=== PATIENT | female | born 1950 | race Caucasian/White ===

== ENCOUNTER 2023-11-16 06:46 | Day surgery (SDC) | payer MEDICARE, BC, SELFPAY ==
--- OUTSIDE RECORDS SUMMARY | 2023-11-16 06:52 | XMS_ITS | Clinical Summary ---
Author Name Unknown Organization [facility] Address [place], [place] [address] Care Team Providers Care Instrument Repair Technician Name Role Phone Rupinder Stockton MD Primary Care Provide r Allergies Active Allergy Reactions Criticality Noted Date Comments Erythromycin Diarrhea 04/17/2007 Terbinafine Rash 11/25/2022 Medications Medication Sig Dispensed Refills Start Date End Date Status blood-glucose meterIndications :Type 2 diabetes mellitus without complication, without long-term current use of insulin (HC) Dispense meter, test strips, lancets covered by pt ins. E11.9 NIDDM type II - Test 2 times/day.New diagnosis of diabetes. 1 Device 0 9 Active loperamide (IMODIUM) 2 mg capsuleIndicatio ns:Loose stools Take 4mg by mouth each AM. Then OK to take 2 mg with 1st loose stool, then 2mg with each subsequent loose stool. Max 16 mg in 24 hrs 180 Capsule 1 3 Active cetirizine (ZYRTEC) 10 mg tabletIndication s:Rash Take 1 Tablet (10 mg) by mouth once daily. 30 Tablet 0 3 Active diphenhydrAMINE (BENADRYL) 25 mg capsuleIndicatio ns:Rash Take 1-2 capsules at bedtime for itching 20 Capsule 0 3 Active meclizine (ANTIVERT) 12.5 mg tabletIndication s:Vertigo Take 1-2 tablets every 8 hours if needed for dizziness 20 Tablet 0 3 Active atenoloL (TENORMIN) 25 mg tabletIndication s:Essential hypertension,Pal pitations Take 1 Tablet (25 mg) by mouth once daily. 90 Tablet 3 3 Active rosuvastatin (CRESTOR) 5 mg tabletIndication s:Left carotid artery stenosis Take 1 Tablet (5 mg) by mouth at bedtime. 90 Tablet 3 3 Active traZODone (DESYREL) 50 mg tabletIndication s:Primary insomnia TAKE 1-2 TABLETS BY MOUTH AT BEDTIME NEEDED FOR SLEEP 180 Tablet 3 4 Active colestipoL (COLESTID) 1 gram tabletIndication s:Chronic diarrhea Take 1 Tablet (1 g) by mouth two times daily. 60 Tablet 11 4 Active polyethylene glycol-electroly te (GOLYTELY) 236-22.74-6.74 -5.86 gram suspensionIndica tions:Adenomatou s polyp of colon, unspecified part of colon Drink 2 liters the day before colonoscopy and 2 liters 6 hours before colonoscopy appointment 4000 mL 0 4 Active traZODone (DESYREL) 50 mg tabletIndication s:Primary insomnia TAKE ONE TO TWO TABLETS BY MOUTH AT BEDTIME NEEDED FOR SLEEP 180 Tablet 3 2 10/24/19 24 Discontinued triamcinolone (ARISTOCORT; KENALOG) 0.1 % cream As directed once daily. 0 3 11/01/19 24 Discontinued(*Me d complete/Regimen complete/Level of care change) ammonium lactate 12% (LACHYDRIN) 12 % cream Apply topically to affected area(s) one time. ONCE DAILY 0 3 11/01/19 24 Discontinued(*Me d complete/Regimen complete/Level of care change) ketoconazole 2% shampoo (NIZORAL) 2 % shampoo Apply topically to affected area(s). 2-3 times a week 0 3 11/01/19 24 Discontinued(*Me d complete/Regimen complete/Level of care change) clobetasol 0.05% TOPICAL (TEMOVATE) 0.05 % external solution APPLY THIN LAYER TO AFFECTED AREA ON SCALP 1-2X DAILY FOR UP TO 2 WEEKS, THEN TAKE 2 WEEKS OFF. REPEAT ON OFF CYCLE NEEDED FOR FLARES. 0 3 11/01/19 24 Discontinued(*Me d complete/Regimen complete/Level of care change) traZODone (DESYREL) 50 mg tabletIndication s:Primary insomnia TAKE 1-2 TABLETS BY MOUTH AT BEDTIME NEEDED FOR SLEEP 180 Tablet 0 4 10/24/19 24 Discontinued(Reo rder (E-cancel not sent)) Hospital, Clinic, or Other Facility Administered Medication Ordered Dose Route Frequency Start Date End Date Status betamethasone acet,sod phos 9 mg injection (CELESTONE SOLUSPAN)Indications:Right hip pain,Greater trochanteric bursitis of right hip 9 mg IArtic ONE TIME 10/27/2023 10/27/2023 Ended Active Problems Problem Noted Date Diagnosed Date Type 2 diabetes mellitus wit hout complication, without long-term current use of insulin 07/12/2019 Left carotid artery stenosis 05/09/2018 Adenomatous colon polyp 04/11/2014 Overview: Colonoscopy 2005 Colonoscopy 03/2014 polyp repeat in 5 years Colonoscopy 06/2019 polyp, repeat in 5 years Depression with anxiety 02/03/2010 Vitamin D deficiency 07/01/2009 Unspecified essential hypertension Encounters Date Type Department Care Team Description 11/01/2023 10:20 AM GROCERY CLERK STOCKING Ancillary Procedure [facility] [address] [place] [address] 11/01/2023 8:50 AM GROCERY CLERK STOCKING Office Visit [facility] [address] [place] [address] Rupinder Stockton MD Medicare ANNUAL (subsequent) Visit (73 yo Female/Still struggles with IBS) 11/01/2023 8:00 AM GROCERY CLERK STOCKING Preop Visit [facility] [address] [place] [address] Rupinder Stockton MD Pre-Op Exam (Cataract surgery, 11/16/23, Dr Diamond) 11/01/2023 Telephone [facility] [address] [place] [address] Jerzy Robison MD Pre Procedure (COLONOSCOPY) 11/01/2023 Travel 10/27/2023 10:20 AM GROCERY CLERK STOCKING Office Visit [facility] [address] [place] [address] Jerrell Gold MD Musculoskeletal Problem (Consult right hip pain, per Dr. Stockton) 10/27/2023 Travel 10/23/2023 Refill [facility] [address] [place] [address] Rupinder Stockton MD Refill Request (Trazodone) 09/20/2023 4:30 PM GROCERY CLERK STOCKING Ancillary Procedure [facility] [address] [place] [address] 09/20/2023 3:05 PM GROCERY CLERK STOCKING Office Visit [facility] [address] [place] [address] Rupinder Stockton MD Hip Pain/problem (Right hip started around the beginning of July.) 09/20/2023 Travel 09/14/2023 Telephone [facility] [address] [place] [address] Rupinder Stockton MD Appointment 09/14/2023 Refill [facility] [address] [place] [address] Rupinder Stockton MD Refill Request (Atenolol, Rosuvastatin) from Last 3 Months Immunizations Name Administration Dates Next Due COVID-19 vaccine (Pfizer-Bio NTech 30mcg/0.3mL) 12YO+ BIVALENT PF, MDV 09/24/2022 COVID-19 vaccine (Pfizer-Bio NTech 30mcg/0.3mL) PF, MDV 08/28/2021 HepA-HepB (Twinrix) 08/26/2006 Influenza, High-dose Inactivated 06/09/2020 Influenza, IIV3 (Age >=3 years) 07/04/2013,06/17,07/01/2009 Influenza, IIV4 06/09/2020 Influenza, Inactivated AIIV4 (Age 65+ Years) Preserv Free 06/16/2023,09/24/2022,08/27/2021 Influenza, Inactivated IIV3 (Age 65+ Years) Preserv Free 06/14/2019,07/08/2017 Pneumococcal Poly,23-Valent (Pneumovax) 06/14/20 19 Pneumococcal conj 13-Valent (Prevnar 13) 018 Tdap 04/20/2018,10/13/2005 Family History Medical History Relation Name Comments Other Brother psoriatic arthr itis Diabetes Father Heart Disease Father Diabetes Maternal Grandfather Diabetes Maternal Grandmother Osteoporosis Mother Stroke Sister anticardiolipin ab Diabetes type I Son Cancer-breast No Family History Cancer-ovarian No Family History Relation Name Status Comments Brother Father Maternal Grandfather Maternal Grandmother Mother Sister Son Alive Social History Tobacco Use Types Packs/Day Years Used Date Smoking Tobacco: Never Passive Smoke Exposure: Never Smokeless Tobacco: Never Tobacco Cessation:Counseling Given: Yes Alcohol Use Standard Drinks/Week Comments Yes 0 (1 standard drink = 0.6 oz pur e alcohol) 2-3 times per year PHQ-2 Answer Date Recorded PHQ-2 TOTAL SCORE 2 11/01/2023 Social Connections Answer Date Recorded Frequency of Communication with Friends and Fami ly 0 11/25/2022 Financial Resource Strain Answer Date R ecorded Difficulty of Paying Living Expenses 3 11/25/2022 Difficulty of Paying Living Expenses Not on file 11/25/2022 Food Insecurity Answer Date Recorded Worried About Running Out of Food in the Last Ye ar 1 11/25/2022 Transportation Needs Answer Date Record ed Lack of Transportation (Medical) 1 11/25/2022 Housing Stability Answer Date Recorded Unable to Pay for Housing in the Last Year 1 11/25/2022 Sex and Gender Information Value Date Recorded Sex Assigned at Not on file Gender Identity Not on file Sexual Orientation Not on file Obstetrics History Para Term AB IAB SAB Ectopic Multiple Livin g Live Births 3 2 2 2 Date Outcome GA Total Labor Labor/2nd/3rd Weight Sex Delivery Anes PTL Gianna A1 A5 Name Cl in Term Term Last Filed Vital Signs Vital Sign Reading Time Taken Comments Blood Pressure 111/72 11/01/2023 8:16 AM GROCERY CLERK STOCKING Pulse 52 11/01/2023 8:16 AM GROCERY CLERK STOCKING Temperature 36.7 ??C (98.1 ??F) 10/27/2023 10:[address] Respiratory Rate 16 07/20/2023 10:16 AM CDT Oxygen Saturation 99% 11/01/2023 8:16 AM GROCERY CLERK STOCKING Inhaled Oxygen Concentration - - Weight 79.4 kg (175 lb) 11/01/2023 8:16 AM GROCERY CLERK STOCKING Height 162.6 cm (5' 4) 11/01/2023 8:16 AM GROCERY CLERK STOCKING Body Mass Index 30.04 11/01/2023 8:16 AM GROCERY CLERK STOCKING Plan of Treatment Upcoming Encounters Date Type Department Care Team (Late st Contact Info) Description 12/08/2023 11:00 AM CDT Office Visit [facility] [address] [place] [address] Jerzy Robison MD [address] [place] [address] Health Maintenance Due Date Last Done Comments Zoster (shingles) series for age 50+ (1 of 2) 2001 Colonoscopy through age 75 07/18/202407/18, 07/18/2019, 04/11/2014, Additional history exists BMI (ht and wt on same day) for age 18+ 11/01/2024 11/01/2023, 11/01/2023, 01/18/2023, Additional history exists Depression screening for age 12+ 11/01/2024 11/01/2023, 11/01/2023, 11/01/2023, Additional history exists Mammogram for age 45-75 11/01/2024 11/01/19 24, 10/25/2022, 06/19/2019, Additional history exists Medicare Wellness for age 65+ 11/01/2024 11/01/2023 Tetanus booster 04/20/2028 04/20/2018, 10/13/2005 Lipids for age 45-75 11/01/2028 11/01/2023, 09/24/2022, 08/26/2021, Additional history exists Tdap Completed 04/20/2018, 10/13/2005 Hepatitis C screening for ag e 18-79 Completed 06/14/2019 Pneumococcal series for age 65+ Completed 9, 04/20/2018 DEXA/DXA scan for age 65+ Completed 06/19/2019, Influenza for age 65+ Completed 06/16/2023 , 09/24/2022, 08/27/2021, Additional history exists COVID-19 vaccine series Completed 08/02/20, 09/24/2022, 08/28/2021, Additional history exists Procedures Procedure Name Priority Date/Time Associated Diagnosis Comments XR MAMMO BILAT SCREENING Routine 11/01/2023 10:23 AM GROCERY CLERK STOCKING Visit for screening mammogram URINE ALBUMIN TO CREATININE RATIO, RANDOM Routine 11/01/2023 9:43 AM GROCERY CLERK STOCKING Type 2 diabetes mellitus without complication, without long-term current use of insulin (HC) LIPID PANEL W REFLEX MEASURED LDL Routine 11/01/2023 9:42 AM GROCERY CLERK STOCKING Type 2 diabetes mellitus without complication, without long-term current use of insulin (HC) BASIC METABOLIC PANEL Routine 11/01/2023 9:42 AM GROCERY CLERK STOCKING Type 2 diabetes mellitus without complication, without long-term current use of insulin (HC) HEMOGLOBIN A1C Routine 11/01/2023 9:42 AM GROCERY CLERK STOCKING Type 2 diabetes mellitus without complication, without long-term current use of insulin (HC) XR HIP 1 VIEW W PELVIS RIGHT Routine 09/20/2023 4:33 PM GROCERY CLERK STOCKING Right hip pain from Last 3 Months Results * XR MAMMO BILAT SCREENING (11/01/2023 10:23 AM GROCERY CLERK STOCKING) Anatomical Region Laterality Modality BREASTS, Breast Left, Breast Right Bilateral Mammography Impressions 11/01/2023 2:40 PM GROCERY CLERK STOCKING ??There is no radiographic evidence for malignancy. ??Recommend annual mammograms. MAMMOGRAM ASSESSMENT: ??ACR 1 Negative PATIENTS: You will also receive a letter with your examination results in an easy to read format. ??If you have questions about your results, please contact your referring provider. Narrative 11/01/2023 2:40 PM GROCERY CLERK STOCKING For Patients: As a result of the Century Cures Act, medical imaging exams and procedure reports are released immediately into your electronic medical record. You may view this report before your referring provider. If you have questions, please contact your health care provider. XR MAMMO BILAT SCREENING [[id number]] CLINICAL HISTORY: ??This is an asymptomatic 73 y.o. patient. INDICATION FOR EXAM: Mammogram Screening. TECHNIQUE: CC & MLO views were obtained. ??This study was evaluated with the assistance of Computer-Aided Detection. COMPARISON FILM: Yes 10/25/22 [facility] 06/19/19 [facility] FINDINGS: ??The breasts are almost entirely fatty. There are no dominant masses, suspicious micro calcifications or areas of architectural distortion. Rupinder Stockton MD MAMMO * URINE ALBUMIN TO CREATININE RATIO, RANDOM (11/01/2023 9:43 AM GROCERY CLERK STOCKING) ALB RAND URINE <12.0 mg/L 11/01/2023 7:26 PM GROCERY CLERK STOCKING [facility] CREATININE,URINE 1.11 g/L 11/01/19 7:26 PM GROCERY CLERK STOCKING [facility] ALBUMIN TO CREATININE RATIO,RAND UR 11/01/2023 7:26 PM GROCERY CLERK STOCKING [facility] Comment:Urine Albumin below measurement range, unable to calculate. Urine URINE SPECIMEN / Unknown Non-Blood / Unknown 11/01/2023 9:43 AM GROCERY CLERK STOCKING 11/01/2023 9:43 AM GROCERY CLERK STOCKING Narrative [facility] - 11/01/2023 7:26 PM GROCERY CLERK STOCKING If Albumin to Creatinine Ratio is elevated, consider the following: ? Elevations seen with incipient nephropathy associated ?? with diabetes mellitus or hypertension. Stress, exercise,hematuria, ?? and urinary tract infection may also produce elevated results. If clinically indicated, confirm with ?24 Hour Albumin to Creatinine Ratio. ?? Rupinder Stockton MD URINE [facility] [address] [place] [address], * (ABNORMAL) LIPID PANEL W REFLEX MEASURED LDL (11/01/2023 9:42 AM GROCERY CLERK STOCKING) CHOLESTEROL,TOTAL 129 100 - 199 mg/dL 11/01/2023 7:08 PM GROCERY CLERK STOCKING [facility] Comment: Cholesterol, Total Reference Ranges Desirable <200 mg/dL Borderline 200-239 mg/dL High >=240 mg/dL TRIGLYCERIDES 174(H) <150 mg/dL 11/01/2023 7:08 PM GROCERY CLERK STOCKING [facility] HDL CHOLESTEROL 52 >40 mg/dL 7:08 PM [facility] NON-HDL CHOLESTEROL 77 <145 mg/dl 11/01/2023 7:08 PM [facility] CHOL/HDL RATIO 2.48 <4.50 11/01/2023 7:08 PM [facility] LDL CHOLESTEROL 42 <=130 mg/dL 11/01/2023 7:08 PM [facility] VLDL CHOLESTEROL 35(H) <=30 mg/dL 11/01/2023 7:08 PM [facility] PROVIDER ORDERED STATUS RANDOM 11/01/2023 7:08 PM [facility] Blood BLOOD SPECIMEN / Unknown Butterfly / Unknown 11/01/2023 9:42 AM GROCERY CLERK STOCKING 11/01/2023 9:42 AM GROCERY CLERK STOCKING Rupinder Stockton MD CHEMISTRY [facility] [address] [place] [address], * HEMOGLOBIN A1C MONITORING (POCT) (11/01/2023 9:42 AM GROCERY CLERK STOCKING) HEMOGLOBIN A1C MONITORING (POCT) 5.9 <=6.4 % 11/01/2023 9:57 AM GROCERY CLERK STOCKING [facility] Blood BLOOD SPECIMEN / Unknown Butterfly / Unknown 11/01/2023 9:42 AM GROCERY CLERK STOCKING 11/01/2023 9:42 AM GROCERY CLERK STOCKING Narrative [facility] - 11/01/2023 9:57 AM GROCERY CLERK STOCKING ? (<=6.9%) ? Indicates good control ? (7.0% to 7.9%) ? Indicates fair control ? (>=8.0%) ? Indicates poor control ?? NOTE: ??These thresholds are guidelines and ?individual targets may vary. Falsely low levels may be seen with: Recent Transfusion, Recent Significant Blood Loss, Hemolytic Diseases, or Falsely elevated levels may be seen with: Untreated Anemias, Splenectomy ? Rupinder Stockton MD CHEMISTRY [facility] [address] [place] [address], * (ABNORMAL) BASIC METABOLIC PANEL (11/01/2023 9:42 AM GROCERY CLERK STOCKING) SODIUM 144 136 - 145 mmol/L 11/01/2023 7:08 PM [facility] POTASSIUM 5.3(H) 3.5 - 5.1 mmol/L 11/01/2023 7:08 PM [facility] CHLORIDE 105 98 - 107 mmol/L 11/01/2023 7:08 PM [facility] CO2,TOTAL 27 22 - 29 mmol/L 11/01/2023 7:08 PM [facility] ANION GAP 12 5 - 18 11/01/2023 7:08 PM [facility] GLUCOSE 104(H) 70 - 99 mg/dL 11/01/2023 7:08 PM [facility] CALCIUM 9.8 8.8 - 10.2 mg/dL 11/01/2023 7:08 PM [facility] BUN 18 8 - 23 mg/dL 11/01/2023 7:08 PM [facility] CREATININE 1.02(H) 0.50 - 0.90 mg/dL 11/01/2023 7:08 PM [facility] BUN/CREAT RATIO 18 10 - 20 7:08 PM [facility] eGFR 59(L) >90 mL/min/1.7 3m2 11/01/2023 7:08 PM GROCERY CLERK STOCKING [facility] Comment:As of 2021, eG FR is calculated by the CKD-EPI creatinine equation without race adjustment. ??eGFR can be influenced by muscle mass, exercise, and diet. ??The reported eGFR is an estimation only and is only applicable if the renal function is stable. Blood BLOOD SPECIMEN / Unknown Butterfly / Unknown 11/01/2023 9:42 AM GROCERY CLERK STOCKING 11/01/2023 9:42 AM GROCERY CLERK STOCKING Rupinder Stockton MD CHEMISTRY [facility] [address] [place] [address], [place] * XR HIP 1 VIEW W PELVIS RIGHT (09/20/2023 4:33 PM GROCERY CLERK STOCKING) Anatomical Region Laterality Modality HIPS, HIPR, Pelvis Computed Radi ography 09/20/2023 4:35 PM GROCERY CLERK STOCKING Narrative 09/20/2023 4:35 PM GROCERY CLERK STOCKING For Patients: ??As a result of the Cures Act, medical imaging exams and procedure reports are released immediately into your electronic medical record. ??You may view this report before your referring provider. ??If you have questions, please contact your health care provider. Indication: Hip pain Technique: Pelvis and right hip 3 views Comparison: None Findings: Mild spurring is present at both hip joints. There is no fracture. SI joints are relatively maintained. Intact pubic rami. Impression: Mild degenerative joint disease right hip. Dictated by Jaime Rivas MD @ Sep 20 2023 ??4:35PM (Electronically Signed) ?? Procedure Note Jaime Rivas MD - 09/20/2023 For Patients: As a result of the Cures Act, medical imagingexams and procedure reports are released immediately into your electronicmedical record. You may view this report before your referring provider.If you have questions, please contact your health care provider. Indication: Hip pain Technique: Pelvis and right hip 3 views Comparison: None Findings: Mild spurring is present at both hip joints. There is no fracture. SIjoints are relatively maintained. Intact pubic rami. Impression: Mild degenerative joint disease right hip. Dictated by Jaime Rivas MD @ Sep 20 2023 4:35PM (Electronically Signed) Rupinder Stockton MD [facility] from Last 3 Months Care Teams Instrument Repair Technician Relationship Specialty Start Date End Date Rupinder Stockton MD [address] [place] [address] PCP - General Family Practice 04/13/11
--- NOTE | 2023-11-16 06:58 | SUR.PREOP ---
The eye drops brought by the patient (Ketorolac, Prednisolone, and Ofloxacin) are examined and I have determined they are labeled by the patient's pharmacy for this patient as prescribed by the surgeon. The bottles are intact, recently obtained and appear to be correct.
[2023-11-16] MEDS: TETRACAINE 0.5% OPHTH 1 DROP EYE-RIGHT ×2 (07:03→07:13)
[2023-11-16] MEDS: KETOROLAC OPHTH 0.5% 1 DROP EYE-RIGHT ×3 (07:07→07:35)
[2023-11-16] MEDS: SODIUM CHLORIDE 0.9 % (FLUSH) 10 ML SYRINGE IVF (07:39)
[2023-11-16 07:43] VITALS: BP 125/67; PULSE 56; RESP 16; TEMP 36.3; O2SAT 97
[2023-11-16] MEDS: TETRACAINE 0.5% OPHTH 2 DROP EYE-RIGHT (08:06)
[2023-11-16] MEDS: BALANCED SALT IRRIG SOLN 15 ML EYE-RIGHT (08:09)
--- NOTE | 2023-11-16 08:13 | W.ANESCHARGE ---
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
[2023-11-16 08:34] VITALS: BP 104/63; PULSE 55; RESP 16; TEMP 36.8; O2SAT 96
--- NOTE | 2023-11-16 08:37 | P.OPTPRC_ITS ---
Procedure Note Date of procedure: 11/16/23 Will [facility] bill your pro fee for this procedure?: Yes Procedure Description: SURGEON: Jennifer Diamond MD PREOPERATIVE DIAGNOSIS: Nuclear sclerotic cataract, right eye. POSTOPERATIVE DIAGNOSIS: Nuclear sclerotic cataract, right eye. NAME OF OPERATION: Phacoemulsification of cataract with posterior chamber intraocular lens implantation in the right eye. ANESTHESIA: Topical. ESTIMATED BLOOD LOSS: Less than 2 cc. COMPLICATIONS: None. PATHOLOGY SPECIMEN: None. INDICATIONS: See consult note for details. The risks, benefits and alternatives of the procedure were explained to the patient, who elected to proceed and signed informed consent to do so. PROCEDURE: The patient was brought to the pre-holding area where the right eye was identified as the operative eye. I placed my initials above this eye. The patient received eye drops consisting of 0.5% tetracaine, 1% tropicamide, 10% phenylephrine, and 0.5% ketorolac. The patient was then brought to the operating room where the right eye was again identified as the operative eye. The eye was prepped with Betadine and draped in the usual sterile ophthalmic fashion. A #15 super-sharp blade was used to create a paracentesis site. 1% non-preserved intracameral lidocaine was injected into the anterior chamber. Endocoat was injected into the anterior chamber. A 2.4 mm keratome was used to create a three-plane self-sealing incision 1 mm anterior to the temporal limbus. A cystotome was used to create an anterior capsular leaflet. The Utrata forceps were used to extend this to form a continuous curvilinear capsulorrhexis. Hydrodissection was performed. The cataract was removed with phacoemulsification using the [id number]-[id number] technique. The irrigation and aspiration tip was used to remove the remaining cortex. Healon was injected into the capsular bag. An LIN [id number] intraocular lens of 22.0 diopters was injected into the capsular bag. The irrigation and aspiration tip was used to remove the remaining viscoelastic. Balanced salt solution on a cannula was used to hydrate the wound, and the wound was found to be watertight. The pupil was noted to be round. DISPOSITION: The patient was taken to the recovery room and discharged to home in stable condition. The patient was instructed to call me or go to the emergency department with any sudden change, including dramatic loss of vision, severe pain in the eye or eyebrow region, nausea, or vomiting. The patient will follow up in the clinic tomorrow morning.
--- NOTE | 2023-11-16 10:06 | W.ANESCHARGE ---
Anesthesia Charges Start Date/Time Anesthesia Start Date: 11/16/23 Anesthesia Start Time: 08:02 Stop Date/Time Anesthesia Stop Date: 11/16/23 Anesthesia Stop Time: 08:34 Summary Extremes of Age - Over 70 or under 1: MDA
== END 2023-11-16 09:06 | disposition home or self-care (01) ==
PROVIDERS: PCP Family Medicine; Visit Provider Ophthalmology
PROC: (CPT 66984; principal; 2023-11-16 06:45)
DX: H25.11 Age-related nuclear cataract, right eye (principal); E11.9 Type 2 diabetes mellitus without complications
CPT/HCPCS: 66984; 00142; 82962; 99100; A9270; J2250; J3010; V2632

== ENCOUNTER 2023-11-30 06:39 | Day surgery (SDC) | payer MEDICARE, BC, SELFPAY ==
[2023-11-30] MEDS: TETRACAINE 0.5% OPHTH 1 DROP EYE-LEFT ×2 (06:50→07:02)
[2023-11-30] MEDS: KETOROLAC OPHTH 0.5% 1 DROP EYE-LEFT ×3 (07:00→07:12)
[2023-11-30 07:05] VITALS: BP 121/68; PULSE 63; RESP 20; TEMP 36.2; O2SAT 96
[2023-11-30] MEDS: SODIUM CHLORIDE 0.9 % (FLUSH) 10 ML SYRINGE IVF (07:18)
--- NOTE | 2023-11-30 07:28 | W.ANESCHARGE ---
Anesthesia Charges Start Date/Time Anesthesia Start Date: 11/30/23 Anesthesia Start Time: 07:48 Stop Date/Time Anesthesia Stop Date: 11/30/23 Anesthesia Stop Time: 08:17 Summary Extremes of Age - Over 70 or under 1: MDA
[2023-11-30] MEDS: TETRACAINE 0.5% OPHTH 2 DROP EYE-LEFT (07:50)
[2023-11-30] MEDS: BALANCED SALT IRRIG SOLN 15 ML EYE-LEFT (07:54)
--- NOTE | 2023-11-30 08:00 | W.ANESCHARGE ---
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
--- NOTE | 2023-11-30 08:19 | W.PM.OPTPROC ---
Procedure Note Date of procedure: 11/30/23 Will [facility] bill your pro fee for this procedure?: Yes Procedure Description: SURGEON: Jennifer Diamond MD PREOPERATIVE DIAGNOSIS: Nuclear sclerotic cataract, left eye. POSTOPERATIVE DIAGNOSIS: Nuclear sclerotic cataract, left eye. NAME OF OPERATION: Phacoemulsification of cataract with posterior chamber intraocular lens implantation in the left eye. ANESTHESIA: Topical. ESTIMATED BLOOD LOSS: Less than 2 cc. COMPLICATIONS: None. PATHOLOGY SPECIMEN: None. INDICATIONS: See consult note for details. The risks, benefits and alternatives of the procedure were explained to the patient, who elected to proceed and signed informed consent to do so. PROCEDURE: The patient was brought to the pre-holding area where the left eye was identified as the operative eye. I placed my initials above this eye. The patient received eye drops consisting of 0.5% tetracaine, 1% tropicamide, 10% phenylephrine, and 0.5% ketorolac. The patient was then brought to the operating room where the left eye was again identified as the operative eye. The eye was prepped with Betadine and draped in the usual sterile ophthalmic fashion. A #15 super-sharp blade was used to create a paracentesis site. 1% non-preserved intracameral lidocaine was injected into the anterior chamber. Endocoat was injected into the anterior chamber. A 2.4 mm keratome was used to create a three-plane self-sealing incision 1 mm anterior to the temporal limbus. A cystotome was used to create an anterior capsular leaflet. The Utrata forceps were used to extend this to form a continuous curvilinear capsulorrhexis. Hydrodissection was performed. The cataract was removed with phacoemulsification using the [id number]-[id number] technique. The irrigation and aspiration tip was used to remove the remaining cortex. Healon was injected into the capsular bag. An LIN ZCB00 intraocular lens of 23.0 diopters was injected into the capsular bag. The irrigation and aspiration tip was used to remove the remaining viscoelastic. Balanced salt solution on a cannula was used to hydrate the wound, and the wound was found to be watertight. The pupil was noted to be round. DISPOSITION: The patient was taken to the recovery room and discharged to home in stable condition. The patient was instructed to call me or go to the emergency department with any sudden change, including dramatic loss of vision, severe pain in the eye or eyebrow region, nausea, or vomiting. The patient will follow up in the clinic tomorrow morning.
[2023-11-30 08:32] VITALS: BP 103/54; PULSE 55; RESP 16; TEMP 36.4; O2SAT 94
== END 2023-11-30 08:45 | disposition home or self-care (01) ==
LOC: OR 06:41
PROVIDERS: PCP Family Medicine; Visit Provider Ophthalmology
PROC: (CPT 66984; principal; 2023-11-30 06:45)
DX: H25.12 Age-related nuclear cataract, left eye (principal)
CPT/HCPCS: 66984; 00142; 99100; A9270; J2250; J3010; V2632

== ENCOUNTER 2024-02-22 16:00 | Outpatient (RCR) | payer MEDICARE, BC, SELFPAY | END 2024-04-25 09:37 | disposition home or self-care (01) | PROVIDERS: PCP Family Medicine; Visit Provider Family Medicine | DX: R26.89 Other abnormalities of gait and mobility (principal); H53.2 Diplopia; Z51.89 Encounter for other specified aftercare; H81.90 Unspecified disorder of vestibular function, unspecified ear | CPT/HCPCS: 95992; 97110; 97112; 97140; 97161 ==

== ENCOUNTER 2025-02-05 13:27 | Outpatient (CLI) | payer MEDICARE, BC, SELFPAY | END 2025-02-05 13:28 | disposition home or self-care (01) | LOC: INJ CL 13:28 | PROVIDERS: PCP Family Medicine; Visit Provider Family Medicine | DX: M54.16 Radiculopathy, lumbar region (principal); M48.062 Spinal stenosis, lumbar region with neurogenic claudication; M51.369 Other intervertebral disc degeneration, lumbar region without mention of lumbar back pain or lower extremity pain | CPT/HCPCS: 62323; J0702; Q9966 ==

== ENCOUNTER 2025-04-23 09:33 | Outpatient (CLI) | payer MEDICARE, BC, SELFPAY | END 2025-04-23 09:34 | disposition home or self-care (01) | LOC: INJ CL 09:34 | PROVIDERS: PCP Family Medicine; Visit Provider Family Medicine | DX: M54.16 Radiculopathy, lumbar region (principal); M51.369 Other intervertebral disc degeneration, lumbar region without mention of lumbar back pain or lower extremity pain | CPT/HCPCS: 62323; J0702; Q9966 ==

== ENCOUNTER 2025-06-10 10:15 | Outpatient (RCR) | payer MEDICARE, BC, SELFPAY | END 2025-09-04 10:57 | disposition home or self-care (01) | PROVIDERS: PCP Family Medicine; Visit Provider Family Medicine | DX: M54.42 Lumbago with sciatica, left side (principal); M54.41 Lumbago with sciatica, right side; M54.16 Radiculopathy, lumbar region; M48.062 Spinal stenosis, lumbar region with neurogenic claudication; M47.816 Spondylosis without myelopathy or radiculopathy, lumbar region; M43.16 Spondylolisthesis, lumbar region; Z51.89 Encounter for other specified aftercare | CPT/HCPCS: 97012; 97110; 97112; 97140; 97162 ==

== ENCOUNTER 2025-06-18 09:48 | Emergency (ER) | payer MEDICARE, BC, SELFPAY ==
--- OUTSIDE RECORDS SUMMARY | 2025-06-18 09:55 | XMS_ITS | Clinical Summary ---
Author Organization [employer] [facility] Address [address] [place] [id number] Care Team Providers Care Transportation Specialist Name Role Phone Rupinder Stockton MD Primary Care Provide r Allergies Active Allergy Reactions Criticality Noted Date Comments Erythromycin Diarrhea 04/17/2007 Terbinafine Rash 11/25/2022 Medications blood-glucose meterIndications: Type 2 diabetes mellitus without complication, without long-term current use of insulin (HC) Dispense meter, test strips, lancets covered by pt ins. E11.9 NIDDM type II - Test 2 times/day.Ne w diagnosis of diabetes. 1 Device 07/03/20 19 Active rosuvastatin (CRESTOR) 5 mg tabletIndications :Left carotid artery stenosis Take 1 Tablet (5 mg) by mouth at bedtime. 90 Tablet 3 11/13/19 25 Active atenoloL (TENORMIN) 25 mg tabletIndications :Essential hypertension,Palp itations Take 1 Tablet (25 mg) by mouth once daily. 90 Tablet 3 11/13/19 25 Active colestipoL (COLESTID) 1 gram tabletIndications :Chronic diarrhea Take 1 Tablet (1 g) by mouth two times daily. 180 Tablet 3 11/13/19 25 Active nystatin powder (MYCOSTATIN) powderIndications :Intertrigo Apply 1 Strip topically to affected area(s) two times daily. 60 g 5 11/13/19 25 Active traMADoL 50 mg tabletIndications :Lumbar radiculopathy Take 1 Tablet (50 mg) by mouth 3 times daily if needed for Pain. 21 Tablet 01/29/20 25 Active metFORMIN 500 mg Extended-Release tabletIndications :Type 2 diabetes mellitus without complication, without long-term current use of insulin (HC) Take 1 Tablet (500 mg) by mouth once daily. 90 Tablet 3 03/07/20 25 Active traZODone (DESYREL) 50 mg tabletIndications :Primary insomnia Take 1-2 Tablets (50-100 mg) by mouth at bedtime if needed for Sleep. 180 Tablet 2 05/01/20 25 Active celecoxib (CELEBREX) 200 mg capsuleIndication s:Spinal stenosis of lumbar region with neurogenic claudication,Lumb ar facet arthropathy TAKE ONE CAPSULE (200 MG) BY MOUTH TWICE A DAY WITH MEALS . 60 Capsule 1 06/05/20 25 Active celecoxib 200 mg capsuleIndication s:Spinal stenosis of lumbar region with neurogenic claudication,Lumb ar facet arthropathy Take 1 Capsule (200 mg) by mouth two times daily with meals. 60 Capsule 1 03/28/20 25 025 Discontinued Active Problems Problem Noted Date Diagnosed Date Type 2 diabetes mellitus wit hout complication, without long-term current use of insulin 07/12/2019 Left carotid artery stenosis 05/09/2018 Adenomatous colon polyp 04/11/2014 Overview (01/10/2024): Colonoscopy 2005 Colonoscopy 03/2014 polyp repeat in 5 years Colonoscopy 06/2019 polyp, repeat in 5 years Colonoscopy 12/2023 2-TA, normal biopsies, repeat in 7 years Depression with anxiety 02/03/2010 Vitamin D deficiency 07/01/2009 Unspecified essential hypertension Encounters Date Type Department Care Team Description 06/17/2025 Transcribe Orders [facility] [place] [phone] Brandon Winslow MD 06/03/2025 Refill [facility] [address] [place] [address] Jerrell Gold MD Refill Request (Celecoxib) 05/30/2025 10:20 AM CDT Office Visit [facility] [address] [place] [address] Rupinder Stockton MD Follow Up (Maybe got 2 weeks of back pain relief from injection./Started Metformin, going ok.) 05/30/2025 Travel 05/28/2025 2:45 PM CDT Ancillary Procedure [facility] [address] [place] [place] [address] 05/28/2025 2:00 PM CDT [facility] [address] [facility] [address] 05/28/2025 Travel 05/23/2025 Travel 05/14/2025 10:30 AM CDT Ancillary Procedure [facility] [address] [place] [address] 05/14/2025 Travel 05/06/2025 Orders Only [facility] Scanner 1 scan: (1-Ord) [facility], XR LUMBAR SPINE, 05/06/2025 05/06/2025 Transcribe Orders [facility] [place] [phone] Brandon Winslow MD 04/29/2025 Refill [facility] [address] [place] [address] Rupinder Stockton MD Refill Request (Trazodone) 04/23/2025 10:00 AM CDT Office Visit [facility] at [facility] [address] [place] [address] Jerrell Gold MD Procedure (L3-4 ILESI) 04/23/2025 Travel 04/18/2025 Travel 03/28/2025 10:00 AM CDT Office Visit [facility] [address] [place] [address] Jerrell Gold MD Musculoskeletal Problem (Follow up back pain, PRICILA on 02/05/25) 03/28/2025 Travel from Last 3 Months Immunizations Immunization Administration Dates Next Due COVID-19 vaccine (Pfizer-Bio NTech 30mcg/0.3mL) 12YO+ BIVALENT PF, MDV 09/24/2022 COVID-19 vaccine (Pfizer-Bio NTech 30mcg/0.3mL) PF, MDV 08/28/2021 HepA-HepB (Twinrix) 08/26/2006 INFLUENZA, IIV3 PF (AGE >= 6 MO) 06/17/2010 Influenza, High-dose Inactivated 07/10/2024,05/27 Influenza, IIV3 (Age >=3 years) 07/04/2013,06/17,07/01/2009 Influenza, [...] PHQ-2 Answer Date Recorded PHQ-2 TOTAL SCORE 3 11/13/2024 Social Connections Answer Date Recorded Do you often feel lonely or isolated from those around you? 0 11/12/2024 Financial Resource Strain Answer Date R ecorded Difficulty of Paying Living Expenses 3 11/12/2024 Difficulty of Paying Living Expenses Not on file 11/12/2024 Food Insecurity Answer Date Recorded Do you worry your food will run out before you are able to buy more? 1 11/12/2024 Transportation Needs Answer Date Record ed Does lack of transportation keep you from medica l appointments? 1 11/12/2024 Does lack of transportation keep you from work, meetings or getting things that you need? 1 11/12/2024 Housing Stability Answer Date Recorded What is your housing situation today? 1 11/12/2024 Utilities Answer Date Recorded Do you have trouble paying f or utilities (for example, heat, electricity, water, phone)? 1 11/12/2024 Comments No Sex and Gender Information Value Date Recorded Sex Assigned at Not on file Legal Sex Female 5:24 AM [employer] Gender Identity Not on file Sexual Orientation Not on file Obstetrics History Para Term AB IAB SAB Ectopic Multiple Livin g Live Births 3 2 2 2 Date Outcome GA Total Labor Labor/2nd/3rd Weight Sex Type Anes PTL Gianna A1 A5 Name Clin Term Term Last Filed Vital Signs Vital Sign Reading Time Taken Comments Blood Pressure 130/76 05/30/2025 10:22 AM CDT Pulse 58 05/30/2025 10:22 AM CDT Temperature 36.7 C (98.1 F) 03/28/2025 10:02 AM CDT Respiratory Rate 12 01/04/2024 10:05 AM CDT Oxygen Saturation 100% 05/30/2025 10:22 AM CDT Inhaled Oxygen Concentration - - Weight 86.2 kg (190 lb) 05/30/2025 10:22 AM CDT Height 162.2 cm (5' 3.85) 11/13/2024 10:[address] Body Mass Index 32.77 11/13/2024 10:14 AM [employer] Plan of Treatment Health Maintenance Due Date Last Done Comments Zoster (shingles) series for age 50+ (1 of 2) 2001 Hepatitis B series for 19+ ( 2 of 3 - Hep B Twinrix 3-dose series) 09/23/2006 08/26/2006 RSV vaccine for adults or (1 - Risk 60-74 years 1-dose series) 2011 COVID-19 vaccine series ( season) 2025 07/10/2024, 08/02/2023, 09/24/2022, Additional history exists Influenza Vaccine (#1) 2025 , 06/16/2023, 09/24/2022, Additional history exists BMI (ht and wt on same day) for age 18+ 11/13/2025 11/13/2024, 11/01/2023, 11/01/2023, Additional history exists Medicare Wellness for age 65+ 11/14/2025 11/13/2024, 11/01/2023 Depression screening for age 12+ 11/26/2025 11/26/2024, 11/13/2024, 11/01/2023, Additional history exists Mammogram for age 45-75 11/29/2025 11/30/19 25, 11/01/2023, 10/25/2022, Additional history exists Tetanus booster 04/20/2028 04/20/2018, 10/13/2005 Lipids for age 45-75 11/13/2029 11/13/2024, 11/01/2023, 09/24/2022, Additional history exists Colonoscopy through age 75 01/03/203101/03, 01/04/2024, 01/04/2024, Additional history exists Hepatitis C screening for ag e 18-79 Completed 06/14/2019 Pneumococcal series for age 50+ Completed 9, 04/20/2018 DEXA/DXA scan for age 65+ Completed 2024, 06/19/2019, 07/11/2008 Procedures Procedure Name Priority Date/Time Associated Diagnosis Comments CBC WITH AUTO DIFFERENTIAL Routine 05/30/2025 11:11 AM CDT Type 2 diabetes mellitus without complication, without long-term current use of insulin (HC) CBC WITH AUTO DIFFERENTIAL Routine 05/30/2025 11:11 AM CDT Type 2 diabetes mellitus without complication, without long-term current use of insulin (HC) TSH WITH REFLEX Routine 05/30/2025 11:11 AM CDT Hair loss HEMOGLOBIN A1C Routine 05/30/2025 11:11 AM CDT Type 2 diabetes mellitus without complication, without long-term current use of insulin (HC) MR SPINE THORACIC WO Routine 05/28/2025 3:15 PM CDT Thoracic spinal stenosis MR SPINE CERVICAL WO Routine 05/28/2025 2:25 PM CDT Cervical spinal stenosis XR DXA BONE DENSITY 2 SITES AXIAL Routine 05/14/2025 10:37 AM CDT Cervical spinal stenosis Thoracic spinal stenosis Osteoporosis without current pathological fracture SCAN-RADIOLOGY REPORT 05/06/2025 12:00 AM CDT AMB EPIDURAL STEROID INJECTION Routine 04/23/2025 12:00 AM CDT Spinal stenosis of lumbar region with neurogenic claudication Lumbar radiculopathy Lumbar facet arthropathy Spondylolisthesis of lumbar region XR MAMMO BILAT SCREENING Routine 11/29/2024 1:47 PM [employer] Visit for screening mammogram LIPID PANEL W REFLEX MEASURED LDL Routine 11/13/2024 11:25 AM [employer] Hyperlipidemia, unspecified hyperlipidemia type COLONOSCOPY 01/04/2024 8:46 AM CDT History of colon polyps Polyp of colon, unspecified part of colon, unspecified type Diverticulosis of large intestine without hemorrhage ANTI HCV Routine 06/14/2019 2:07 PM CDT Encounter for hepatitis C screening test for low risk patient from Last 3 Months or Most Recently Relevant to Health Maintenance Results * CBC WITH AUTO DIFFERENTIAL (05/30/2025 11:11 AM CDT) WHITE BLOOD CELL COUNT 6.3 3.8 - 10.8 Thousand/u L 05/31/2025 3:25 AM CDT [facility] RED BLOOD CELL COUNT 4.42 3.80 - 5.10 Million/uL 05/31/2025 3:25 AM CDT [facility] HEMOGLOBIN 13.9 11.7 - 15.5 g/dL 05/31/2025 3:25 AM CDT [facility] HEMATOCRIT 41.5 35.0 - 45.0 % 05/31/2025 3:25 AM CDT [facility] MCV 93.9 80.0 - 100.0 fL 05/31/2025 3:25 AM CDT [facility] MCH 31.4 27.0 - 33.0 pg 05/31/2025 3:25 AM CDT [facility] MCHC 33.5 32.0 - 36.0 g/dL 05/31/2025 3:25 AM CDT [facility] Comment: For adults, a slight decrease in the calculated MCHC value (in the range of 30 to 32 g/dL) is most likely not clinically significant; however, it should be interpreted with caution in correlation with other red cell parameters and the patient's clinical condition. RDW 12.9 11.0 - 15.0 % 05/31/2025 3:25 AM CDT [facility] PLATELET COUNT 192 140 - 400 Thousand/u L 05/31/2025 3:25 AM CDT [facility] MPV 10.2 7.5 - 12.5 fL 05/31/2025 3:25 AM CDT [facility] NEUTROPHILS 45 % 05/31/2025 3:25 AM CDT [facility] LYMPHOCYTES 46.7 % 05/31/2025 3:25 AM CDT [facility] MONOCYTES 7.6 % 05/31/2025 3:25 AM CDT [facility] EOSINOPHILS 0.5 % 05/31/2025 3:25 AM CDT [facility] BASOPHILS 0.2 % 05/31/2025 3:25 AM CDT [facility] ABSOLUTE NEUTROPHILS 2835 1500 - 7800 cells/uL 05/31/2025 3:25 AM CDT [facility] ABSOLUTE LYMPHOCYTES 2942 850 - 3900 cells/uL 05/31/2025 3:25 AM CDT [facility] ABSOLUTE MONOCYTES 479 200 - 950 cells/uL 05/31/2025 3:25 AM CDT [facility] ABSOLUTE EOSINOPHILS 32 15 - 500 cells/uL 05/31/2025 3:25 AM CDT [facility] ABSOLUTE BASOPHILS 13 0 - 200 cells/uL 05/31/2025 3:25 AM CDT [facility] Blood BLOOD SPECIMEN / Unknown [facility] / Unknown 05/30/2025 11:11 AM CDT 05/30/2025 11:11 AM CDT us Rupinder Stockton MD HEMATOLOGY Final Result [facility] [id number] [place] [address], * (ABNORMAL) HEMOGLOBIN A1C (05/30/2025 11:11 AM CDT) HEMOGLOBIN A1C 6.5(H) <5.7 % 05/31/2025 4:58 AM CDT [facility] Comment: For someone without known diabetes, a hemoglobin A1c value of 6.5% or greater indicates that they may have diabetes and this should be confirmed with a follow-up test. For someone with known diabetes, a value <7% indicates that their diabetes is well controlled and a value greater than or equal to 7% indicates suboptimal control. A1c targets should be individualized based on duration of diabetes, age, comorbid conditions, and other considerations. Currently, no consensus exists regarding use of hemoglobin A1c for diagnosis of diabetes for children. Blood BLOOD SPECIMEN / Unknown [facility] / Unknown 05/30/2025 11:11 AM CDT 05/30/2025 11:11 AM CDT us Rupinder Stockton MD CHEMISTRY Final Result Performing Organization Address [facility] Co de Phone Number [facility] [address] [address], [place] [phone] * TSH WITH REFLEX (05/30/2025 11:11 AM CDT) TSH W/REFLEX TO FT4 2.03 0.40 - 4.50 mIU/L 05/31/2025 4:09 AM CDT [facility] Blood BLOOD SPECIMEN / Unknown [facility] / Unknown 05/30/2025 11:11 AM CDT 05/30/2025 11:11 AM CDT Rupinder Stockton MD CHEMISTRY Final Result Performing Organization Address [facility] de Phone Number [facility] [address] [address], [place] [phone] * MR Spine Thoracic wo Contrast * (05/28/2025 3:15 PM CDT) Anatomical Region Laterality Modality Spine, THORACIC SPINE Magnetic R esonance 05/29/2025 9:05 AM CDT Impressions 05/29/2025 9:05 AM CDT 1. Normal alignment. No fractures 2. Normal cord signal 3. Mild thoracic spondylosis 4. At T9-10, disc degeneration. Posterior disc bulge. Mild narrowing of the spinal canal 5. No spinal canal or neural foraminal narrowing at the remaining levels Dictated by Alberto Mccarty MD @ 05/29/2025 9:05:40 AM (Electronically Signed) Narrative 05/29/2025 9:05 AM CDT For Patients: As a result of the Cures Act, medical imaging exams and procedure reports are released immediately into your electronic medical record. You may view this report before your referring provider. If you have questions, please contact your health care provider. INDICATION: Thoracic stenosis. COMPARISON: None. TECHNIQUE: Sagittal T1, T2, and STIR sequences. Axial T2/gradient sequences. FINDINGS: Normal vertebral body facet alignment. No fractures. No vertebral body loss of height. No spondylolisthesis. No ligamentous injury. Normal marrow signal. No suspicious osseous lesions. Normal cord signal. No intradural mass or lesion. Thoracic spondylosis with multilevel disc degeneration. T1-2: Disk degeneration and small left paracentral disc protrusion. Otherwise, no spinal canal or neural foraminal narrowing. T2-3: Mild disc degeneration. No spinal canal or neural foraminal narrowing. T8-9: Disc degeneration. Shallow right paracentral disc bulge. No spinal canal or neural foraminal narrowing. T9-10: Disc degeneration. Posterior disc bulge. Effacement of the right ventral aspect of thecal sac. Mild narrowing of spinal canal. No neural foraminal narrowing. No splenic no neural foraminal narrowing at the remaining levels of thoracic spine. Normal paraspinal soft tissues. Procedure Note Alberto Mccarty MD, PhD - 05/29/2025 For Patients: As a result of the Cures Act, medical imagingexams and procedure reports are released immediately into your electronicmedical record. You may view this report before your referring provider.If you have questions, please contact your health care provider. INDICATION: Thoracic stenosis. COMPARISON: None. TECHNIQUE: Sagittal T1, T2, and STIR sequences. Axial T2/gradient sequences. FINDINGS: Normal vertebral body facet alignment. No fractures. No vertebral bodyloss of height. No spondylolisthesis. No ligamentous injury. Normal marrowsignal. No suspicious osseous lesions. Normal cord signal. No intradural mass or lesion. Thoracic spondylosis with multilevel disc degeneration. T1-2: Disk degeneration and small left paracentral disc protrusion.Otherwise, no spinal canal or neural foraminal narrowing. T2-3: Mild disc degeneration. No spinal canal or neural foraminalnarrowing. T8-9: Disc degeneration. Shallow right paracentral disc bulge. No spinalcanal or neural foraminal narrowing. T9-10: Disc degeneration. Posterior disc bulge. Effacement of the rightventral aspect of thecal sac. Mild narrowing of spinal canal. No neuralforaminal narrowing. No splenic no neural foraminal narrowing at the remaining levels ofthoracic spine. Normal paraspinal soft tissues. IMPRESSION: 1. Normal alignment. No fractures 2. Normal cord signal 3. Mild thoracic spondylosis 4. At T9-10, disc degeneration. Posterior disc bulge. Mild narrowing ofthe spinal canal 5. No spinal canal or neural foraminal narrowing at the remaining levels Dictated by Alberto Mccarty MD @ 05/29/2025 9:05:40 AM (Electronically Signed) Brandon Winslow MD MR Final Result * MR Spine Cervical wo Contrast * (05/28/2025 2:25 PM CDT) Anatomical Region Laterality Modality Spine, CERVICAL SPINE Magnetic R esonance 05/29/2025 9:01 AM CDT Impressions 05/29/2025 9:01 AM CDT 1. Normal alignment. No fractures. 2. Normal cord signal 3. At C3-4, moderate narrowing of the left neural foramen 4. At C4-5, moderate to severe narrowing of the right neural foramen. Potential impingement of the right C5 nerve root. 5. At C6-7, mild narrowing of the spinal canal. Moderate severe narrowing of the left neural foramen. Potential impingement of the left C7 nerve root 6. At C7-T1, mild narrowing of the right neural foramina Dictated by Alberto Mccarty MD @ 05/29/2025 9:01:47 AM (Electronically Signed) Narrative 05/29/2025 9:01 AM CDT For Patients: As a result of the Century Cures Act, medical imaging exams and procedure reports are released immediately into your electronic medical record. You may view this report before your referring provider. If you have questions, please contact your health care provider. INDICATION: Cervical spinal stenosis. COMPARISON: None. TECHNIQUE: Sagittal T1, T2, and STIR sequences. Axial T2/gradient sequences. FINDINGS: Normal vertebral body facet alignment. No fractures. No vertebral body loss of height. No spondylolisthesis. No ligamentous injury. Normal marrow signal. No suspicious osseous lesions. Normal cord signal. No intradural mass or lesion. C1-2: No spinal canal narrowing. C2-3: No spinal canal or neural foraminal narrowing. C3-4: Mild disc degeneration. No narrowing of spinal canal. Uncovertebral joint hypertrophy results in moderate narrowing of the left neural foramen. No narrowing of the right neural foramen. C4-5: Disc degeneration and posterior disc bulge disc osteophyte complex. No narrowing of spinal canal. Moderate severe narrowing of the right neural foramen. No narrowing of the left neural foramen. Potential impingement of the right C5 nerve root. C5-6: No spinal canal or neural foraminal narrowing. C6-7: Disc generation broad-based disc osteophyte complex. Effacement of the ventral thecal sac mild narrowing of the spinal canal. Uncovertebral joint hypertrophy results in moderate severe narrowing of the left neural foramen. No narrowing of the right neural foramen. Potential impingement of left C7 nerve root. C7-T1: Disc generation posted disc bulge. No narrowing of spinal canal. Mild narrowing of the right neural foramen. No narrowing of the left neural foramen. No spinal canal or neural foraminal narrowing in the visualized upper thoracic spine. Procedure Note Alberto Mccarty MD, PhD - 05/29/2025 For Patients: As a result of the Century Cures Act, medical imagingexams and procedure reports are released immediately into your electronicmedical record. You may view this report before your referring provider.If you have questions, please contact your health care provider. INDICATION: Cervical spinal stenosis. COMPARISON: None. TECHNIQUE: Sagittal T1, T2, and STIR sequences. Axial T2/gradient sequences. FINDINGS: Normal vertebral body facet alignment. No fractures. No vertebral bodyloss of height. No spondylolisthesis. No ligamentous injury. Normal marrowsignal. No suspicious osseous lesions. Normal cord signal. No intraduralmass or lesion. C1-2: No spinal canal narrowing. C2-3: No spinal canal or neural foraminal narrowing. C3-4: Mild disc degeneration. No narrowing of spinal canal. Uncovertebraljoint hypertrophy results in moderate narrowing of the left neuralforamen. No narrowing of the right neural foramen. C4-5: Disc degeneration and posterior disc bulge disc osteophyte complex.No narrowing of spinal canal. Moderate severe narrowing of the rightneural foramen. No narrowing of the left neural foramen. Potentialimpingement of the right C5 nerve root. C5-6: No spinal canal or neural foraminal narrowing. C6-7: Disc generation broad-based disc osteophyte complex. Effacement ofthe ventral thecal sac mild narrowing of the spinal canal. Uncovertebraljoint hypertrophy results in moderate severe narrowing of the left neuralforamen. No narrowing of the right neural foramen. Potential impingementof left C7 nerve root. C7-T1: Disc generation posted disc bulge. No narrowing of spinal canal.Mild narrowing of the right neural foramen. No narrowing of the leftneural foramen. No spinal canal or neural foraminal narrowing in the visualized upperthoracic spine. IMPRESSION: 1. Normal alignment. No fractures. 2. Normal cord signal 3. At C3-4, moderate narrowing of the left neural foramen 4. At C4-5, moderate to severe narrowing of the right neural foramen.Potential impingement of the right C5 nerve root. 5. At C6-7, mild narrowing of the spinal canal. Moderate severe narrowingof the left neural foramen. Potential impingement of the left C7 nerveroot 6. At C7-T1, mild narrowing of the right neural foramina Dictated by Alberto Mccarty MD @ 05/29/2025 9:01:47 AM (Electronically Signed) Brandon Winslow MD MR Final Result * XR DXA BONE DENSITY 2 SITES AXIAL (05/14/2025 10:37 AM CDT) Anatomical Region Laterality Modality Spine, HIPS, HIPL, HIPR Other Impressions 05/15/2025 7:51 AM CDT Normal bone density. RECOMMENDATIONS: The National Osteoporosis Foundation recommends pharmacologic treatment for patients with T-scores of -2.5 or less, patients with prior history of fragility fractures, or patients with 10-year probability of greater than 3% at hips or greater than 20% of suffering major osteoporotic fractures. Recommend continued optimization of calcium and vitamin D intake through dietary means and/or supplementation and regular exercise. Repeat scan recommended in 3-5 years. Lara Marcelino PA-C [facility] 05/15/2025 Narrative 05/15/2025 7:51 AM CDT For Patients: Results are automatically released to your [facility] account once available, in compliance with federal regulations. This means that you may see your results before your provider has had a chance to review them. Please allow 2-3 business days for your provider to comment on the results. XR DXA Bone Mineral Density (BMD) EXAM LOCATION: [facility] [address] [facility] [address] PATIENT NAME: Dilma Mireles DATE OF : 1950 EXAM DATE: 05/14/2025 REQUESTING PROVIDER: Brandon Winslow MD GENDER AT : female HEIGHT: 5' 3.85 (11/13/2024) WEIGHT: 195 lb (03/28/2025) MENOPAUSAL STATUS: Postmenopausal RACE/ETHNICITY: White RISK FACTORS: Family History of Osteoporosis and White Race CURRENT MEDICATION FOR BONE LOSS: NONE INDICATION: Follow-up of existing osteoporosis COMPARISON DATE(S): 2018 DXA scans are compared to prior studies for a patient only when the two (or more) studies were performed on the same scanner. It is not possible to compare data generated on one scanner to data from another because there are not standards in DXA equipment. This applies even if the two scanners are made by the same firer retort. PROCEDURE: Dual-energy x-ray absorptiometry performed with routine technique. Reporting is completed in the form of a T-score. The T-score represents the standard deviation from peak bone mass based on young healthy adult. A Z-score is used for diagnosis in premenopausal women, and for men under the age of 50. FINDINGS: RESULT LUMBAR SPINE L1 - L4 BMD: 1.827 g/cm2 T-Score: + 5.1 Z-Score: + 6.1 Change from prior in 2019: Increase 6.3%. RESULTS FEMUR Left femoral neck BMD: 1.212 g/cm2 T-Score: + 1.3 Z-Score: + 2.6 Change from prior in 2019: Decrease 6.5%. Right femoral neck BMD: 1.234 g/cm2 T-Score: + 1.4 Z-Score: + 2.8 Change from prior in 2019: Decrease 6.3%. Left hip BMD: 1.333 g/cm2 T-Score: + 2.6 Z-Score: + 3.7 Change from prior in 2019: Decrease 1.7%. Right hip BMD: 1.367 g/cm2 T-Score: + 2.8 Z-Score: + 4.0 Change from prior in 2019: Decrease 3.9%. WHO criteria: Normal: T-score at or above -1 SD Osteopenia: T-score between -1.1 and -2.4 SD Osteoporosis: T-score at or below -2.5 SD us Brandon Winslow MD DEXA Final Result * SCAN-RADIOLOGY REPORT (05/06/2025 12:00 AM CDT) Anatomical Region Laterality Modality Other us Scanner OTHER Final Result * AMB EPIDURAL STEROID INJECTION (04/23/2025 12:00 AM CDT) us Jerrell Gold MD NEUROLOGY ORD Final Resu lt * XR MAMMO BILAT SCREENING (11/29/2024 1:47 PM [employer]NAGER) Anatomical Region Laterality Modality BREASTS, Breast Left, Breast Right Bilateral Mammography Impressions 11/29/2024 2:37 PM [employer]NAGER There is no radiographic evidence for malignancy. Recommend annual mammograms. MAMMOGRAM ASSESSMENT: ACR 1 Negative PATIENTS: You will also receive a letter with your examination results in an easy to read format. If you have questions about your results, please contact your referring provider. Narrative 11/29/2024 2:37 PM [employer]ES MANAGER For Patients: As a result of the 21st Century Cures Act, medical imaging exams and procedure reports are released immediately into your electronic medical record. You may view this report before your referring provider. If you have questions, please contact your health care provider. XR MAMMO BILAT SCREENING [[id number]] CLINICAL HISTORY: This is an asymptomatic 74 y.o. patient. INDICATION FOR EXAM: Mammogram Screening. TECHNIQUE: CC and MLO views were obtained. This study was evaluated with the assistance of Computer-Aided Detection. COMPARISON FILM: Yes 11/01/23 [facility] 10/25/22 [facility] FINDINGS: The breasts are almost entirely fatty. There are no dominant masses, suspicious micro calcifications or areas of architectural distortion. Rupinder Stockton MD MAMMO Final Result * (ABNORMAL) LIPID PANEL W REFLEX MEASURED LDL (11/13/2024 11:25 AM [employer]) CHOLESTEROL, TOTAL 137 <200 mg/dL [facility] HDL CHOLESTEROL 49(L) > OR = 50 mg/dL [facility] TRIGLYCERIDES 154(H) <150 mg/dL [facility] LDL-CHOLESTEROL 64 mg/dL (calc) [facility] Comment: Reference range: <100 Desirable range <100 mg/dL for primary prevention; <70 mg/dL for patients with CHD or diabetic patients with > or = 2 CHD risk factors. LDL-C is now calculated using the Jerzy-Perez calculation, which is a validated novel method providing better accuracy than the Friedewald equation in the estimation of LDL-C. Jerzy SS et al. SHAKEEL. 2013;310(19): 2264-8850 (http://education.Manymoon/faq/VBN996) CHOL/HDLC RATIO 2.8 <5.0 (calc) [facility] NON HDL CHOLESTEROL 88 <130 mg/dL (calc) [facility] Comment: For patients with diabetes plus 1 major ASCVD risk factor, treating to a non-HDL-C goal of <100 mg/dL (LDL-C of <70 mg/dL) is considered a therapeutic option. Blood BLOOD SPECIMEN / Unknown 11/13/2024 11:25 AM [employer] SALES MANAGER 11/13/2024 11:25 AM [employer] SALES MANAGER Rupinder Stockton MD CHEMISTRY Final Result [facility] [address] [place] [address], [facility] [address] [place] [address] * COLONOSCOPY (01/04/2024 8:46 AM CDT) 01/04/2024 8:46 AM CDT Narrative Transcriptions Jerzy Robison MD - 01/04/2024 9:58 AM CDT Patient Name: Dilma Mireles Procedure Date: 01/04/2024 Gender: Female Date of : 1950 Admit Type: Outpatient Procedure: Colonoscopy Proceduralist: Jerzy Robison MD , Delaney Johnson RN (Nurse), Shoshana Waggoner RN (Nurse) Indications/Pre-Op Diagnosis: High risk colon cancer surveillance:Personal history of adenoma less than 10 mm in size, Last colonoscopy: June 2019, Incidental - Diarrhea Medications: Fentanyl 100 micrograms IV, Midazolam 2 mgIV, The level of sedation administered wasmoderate Procedure Description: The patient had risks, benefits and alternatives explained to andgave informed consent. The patient had a stable cardiopulmonary status and judged an adequate candidate for conscious sedation. The PCF-H190L [id number] was passed through the anus and advanced to the cecum, identified by appendiceal orifice and ileocecal valve. The colonoscopy was performed without difficulty. The patient toleratedthe procedure well. The quality of the bowel preparation was good. The ileocecal valve, appendiceal orifice, and rectum were photographed. Complications: No immediate complications. Estimated Blood Loss & Specimen: Estimated blood loss: none. Specimen collected - Yes and sent to Laboratory Findings: The perianal and digital rectal examinations were normal. A 1 mm polyp was found in the cecum. The polyp was sessile. The polyp was removed with a cold biopsy forceps. Resection and retrieval were complete. Two sessile polyps were found in the descending colon. The polypswere 3 to 4 mm in size. These polyps were removed with a cold snare.Resection and retrieval were complete. A few small-mouthed diverticula were found in the sigmoid colon and ascending colon. The exam was otherwise without abnormality. Biopsies for histology were taken with a cold forceps from the entire colon for evaluation of microscopic colitis. Impressions/Post-Op Diagnosis: - One 1 mm polyp in the cecum, removed with a cold biopsy forceps. Resected and retrieved. - Two 3 to 4 mm polyps in the descending colon, removed with a cold snare. Resected and retrieved. - Diverticulosis in the sigmoid colon and in the ascending colon. - The examination was otherwise normal. - Biopsies were taken with a cold forceps from the entire colon for evaluation of microscopic colitis. Recommendation: - Patient has a contact number available for emergencies. The signsand symptoms of potential delayed complications were discussed with the patient. Return to normal activities tomorrow. Written discharge instructions were provided to the patient. - Resume previous diet. - Continue present medications. - Await pathology results. - Repeat colonoscopy is recommended. The colonoscopy date will be determined after pathology results from today's exam become available for review. Moderate Sedation: A time out was performed before the procedure. Moderate (conscious) sedation was administered by the endoscopy nurse and supervised bythe endoscopist. The following parameters were monitored: oxygensaturation, heart rate, blood pressure, EKG, CO2, respiratory rate, adequacy of pulmonary ventilation and reponse to care. Please refer to the patient's medical record flowsheets and nursing notes for moderate sedation details. Total physician intraservice time was 24 minutes. Jerzy Robison MD 01/04/2024 9:57:51 AM This report has been signed electronically. Note Initiated On: 01/04/2024 8:46 AM Procedure Code(s): --- Professional --- 16518, Colonoscopy, flexible; with removalof tumor(s), polyp(s), or other lesion(s) bysnare technique 21038, 59, Colonoscopy, flexible; withbiopsy, single or multiple Diagnosis Code(s): --- Professional --- Z86.010, Personal history of colonicpolyps D12.0, Benign neoplasm of cecum D12.4, Benign neoplasm of descending colon K57.30, Diverticulosis of large intestine without perforation or abscess withoutbleeding CPT copyright 2022 [employer]. All rights reserved. The codes documented in this report are preliminary and upon tech intern reviewmay be revised to meet current compliance requirements. Scope In: Scope Out: us Jerzy Robison MD PROCEDURE ORD Final Res ult * ANTI HCV (06/14/2019 2:07 PM CDT) HEPATITIS C ANTIBODY Non-React cassidy Non-React cassidy 06/14/2019 8:52 PM CDT [facility] Comment:Antibodies to HCV no t detected; does not exclude the possibility of exposure to HCV. Blood BLOOD SPECIMEN / Unknown Butterfly / Unknown 06/14/2019 2:07 PM CDT 06/14/2019 2:07 PM CDT us Rupinder Stockton MD SEND OUTS Final Result [facility] [address] [place] [address], from Last 3 Months or Most Recently Relevant to Health Maintenance Insurance MEDICARE PART B HB ONLY MEDICARE PART A HB ONLY [place] BL[place] HB ONLY [place] BLUE MR PB ONLY WORKERS COMP WORKERS COMP WORKERS COMP [place], [place] [address] Care Teams Transportation Specialist Relationship Specialty Start Date End Date Rupinder Stockton MD [address] [place] [address] PCP - General Family Practice 04/13/11
[2025-06-18 09:57] VITALS: BP 132/79; PULSE 63; RESP 16; TEMP 36.3; O2SAT 95; BMI 30.9
--- NOTE | 2025-06-18 11:38 | ED_ITS ---
HPI - Back Pain/Injury General Date Seen: 06/18/25 Chief Complaint: Back Injury/Pain Stated Complaint: back pain Time Seen by Provider: 06/18/25 11:28 Source: patient Mode of arrival: ambulatory Limitations: no limitations History of Present Illness HPI Narrative: Patient is a 75-year-old female with a history of chronic back issues, diabetes presenting to the emergency department for back pain. She has been did was a chronic back issues and did see a surgeon yesterday. They are working on X [employer] eating her to get surgery due to her herniated discs. She states the pain is been getting worse for the past couple days but has been tolerable. She woke up today and went to the bathroom acutely felt her back pain gets worse. It is in her left low back. States this pain feels like her previous back pain just more severe. States typically a dull ache that occasionally gets sharp in nature. Is in the same area of her back where she previously has had back issues. Denies any saddle anesthesia. Denies any lower extremity weakness or numbness. Was able to ambulate but was painful to move. States she has been urinating normally and does not feel like she has any urinary retention. Denies any fevers or chills. Denies headache, lightheadedness, dizziness, weakness, numbness, abdominal pain, chest pain, shortness of breath. Related Data Home Medications ?Medication ?Instructions ?Recorded ?Confirmed atenolol 25 mg tablet 25 mg PO DAILY 11/15/2305/28 rosuvastatin 5 mg tablet 5 mg PO DAILY 11/15/2306/18 trazodone 50 mg tablet 100 mg PO QPM PRN 11/15/23 0 06/18/25 celecoxib 200 mg capsule mg PO 06/18/25 colestipol 1 gram tablet 1 g PO BID 06/18/25 06/18/25 metformin 500 mg tablet,extended 500 mg PO DAILY 06/1806/18/25 release 24 hr Previous Rx's ?Medication ?Instructions ?Recorded oxycodone 5 mg tablet 5 mg PO Q6H PRN pain #12 tab s 06/18/25 prednisone 20 mg tablet 40 mg (2 x 20 mg) PO DAILY # 10 tabs 06/18/25 Allergies Allergy/AdvReac Type Severity Reaction Status Date / Time erythromycin base Allergy Verified 04/23/25 10:00 terbinafine (From Lamisil) Allergy Verified 04/23/25 10:00 Review of Systems Status of ROS: Reports: 10 or more systems reviewed and unremarkable except as noted in History and below [facility] History Type 2 diabetes mellitus without complication, without long-term current use of insulin ?E11.9 - Type 2 diabetes mellitus without complications (ICD-10) Left carotid artery stenosis ?I65.22 - Occlusion and stenosis of left carotid artery (ICD-10) Depression with anxiety ?F41.8 - Other specified anxiety disorders (ICD-10) Vitamin D deficiency ?E55.9 - Vitamin D deficiency, unspecified (ICD-10) Unspecified essential hypertension ?I10 - Essential (primary) hypertension (ICD-10) Surgical History Hx of bilateral breast reduction surgery ?Z98.890 - Other specified postprocedural states (ICD-10) Social History Smoking Status: Never smoker How often do you have a drink containing alcohol: monthly or less AUDIT-C Alcohol total score: 1 Non-prescribed substance use: denies use Caffeine: Yes Exam Narrative: Exam Narrative: Const: Well-nourished, Well-developed, in moderate distress Eyes: PERRL, no conjunctival injection, and symmetrical lids HENT: Atraumatic external nose and ears. Moist mucous membranes. MSK:Extremities w/o deformity, Normal Active ROM Skin: Warm, Dry. No rashes or lesions. Neuro: Normal Muscle tone, No focal neurological deficits. Psych: Awake, Alert, & Oriented x3. Appropriate mood and affect. Const: Vital Signs, click to edit/add: Vital Signs - 24 hr 06/18/25 09:57 Temperature 97.4 F L Pulse Rate [Pulse Oximeter] 63 Respiratory Rate 16 Blood Pressure [Ri ght Upper Arm] 132/79 Pulse Oximetry 95 Oxygen Delivery Me thod Room Air Course Vital Signs Vital signs: Initial Vital Signs Temperature 97.4 F L 06/18/25 09:57 Temperature Source Temporal Artery Scan 06/18/25 09:57 Pulse Rate 63 06/18/25 09:57 Respiratory Rate 16 06/18/25 09:57 Blood Pressure 132/79 06/18/25 09:57 Blood Pressure Mean 96 06/18/25 09:57 Blood Pressure Position Sitting 06/18/25 09:57 Pulse Oximetry 95 06/18/25 09:57 Oxygen Delivery Method Room Air 06/18/25 09:57 Vital Signs Temperature 97.4 F L 06/18/25 09:57 Pulse Rate 63 06/18/25 09:57 Respiratory Rate 16 06/18/25 09:57 Blood Pressure 132/79 06/18/25 09:57 Pulse Oximetry 95 06/18/25 09:57 Oxygen Delivery Method Room Air 06/18/25 09:57 Temperature 97.4 F L 06/18/25 09:57 Pulse Rate 63 06/18/25 09:57 Respiratory Rate 16 06/18/25 09:57 Blood Pressure 132/79 06/18/25 09:57 Pulse Oximetry 95 06/18/25 09:57 Oxygen Delivery Method Room Air 06/18/25 09:57 MDM - Back Pain/Injury MDM Narrative Medical decision making narrative: Patient is a 75-year-old female presenting for left low back pain. Did consider nephrolithiasis causing the back pain point considering her description of the pain and her history this seems less likely. I did speak to the patient will possible doing a CT scan and she declined at this time. That seems reasonable. She is showing no red flag symptoms for conus medullaris or cauda equina syndrome. I do believe she is safe for discharge will prescribe worsen oxycodone and prednisone. Prednisone normally help with any inflammation. Informed to follow-up with her surgeon and she agrees to this plan. Discharge Plan Discharge Clinical Impression: Lumbar radiculopathy Patient Disposition: Home, Self-Care Condition: Stable Additional Instructions: Take the oxycodone as needed for pain. Take the prednisone daily. We are of oxycodone in the Emergency [facility] machine so prescriptions were sent to her pharmacy. Make sure to have close follow-up with your surgeon for further pain control Prescriptions: New prednisone 20 mg tablet 40 mg PO DAILY Qty: 10 0RF oxycodone 5 mg tablet 5 mg PO Q6H PRN (Reason: pain) Qty: 12 0RF No Action atenolol 25 mg tablet 25 mg PO DAILY trazodone 50 mg tablet 100 mg PO QPM PRN rosuvastatin 5 mg tablet 5 mg PO DAILY celecoxib 200 mg capsule PO metformin 500 mg tablet extended release 24 hr 500 mg PO DAILY colestipol 1 gram tablet 1 g PO BID Follow Up/Referrals: Rupinder Stockton MD [Primary Care Provider, Family Practice] Stand Alone Forms: [facility] Info Instructions
== END 2025-06-18 11:54 | disposition home or self-care (01) ==
LOC: ED 11:48
PROVIDERS: Emergency Provider Student in an Organized Health Care Education/Training Program; PCP Family Medicine
DX: M54.16 Radiculopathy, lumbar region (principal)
CPT/HCPCS: 99283